=== PATIENT | female | born 1960 | race Caucasian/White ===

== ENCOUNTER 2017-03-27 07:23 | Day surgery (SDC) | payer OTHER ==
[2017-03-27] MEDS ORDERED: PROPOFOL 500 MG/50 ML EMU IV ONE (07:53)
[2017-03-27] MEDS ORDERED: LIDOCAINE HCL 1% MPF SOL ONE (07:53)
[2017-03-27 09:01] VITALS: O2SAT 98
[2017-03-27 09:15] VITALS: BP 111/72; PULSE 70; RESP 20; TEMP 96.8
== END 2017-03-27 09:40 | disposition home or self-care (01) | DRG 951 ==
LOC: SURG 07:23
PROVIDERS: ATTEND Surgery
DX: Z86.010 Personal history of colon polyps (principal); E11.9 Type 2 diabetes mellitus without complications; K57.30 Diverticulosis of large intestine without perforation or abscess without bleeding; K63.5 Polyp of colon
CPT/HCPCS: 82962; 99001; J2001; J2704